=== PATIENT | female | born 1940 | race Native Hawaiian/Other Pacific Islander ===

== ENCOUNTER 2021-01-19 19:10 | Emergency (ER) | payer OTHER ==
[~2021-01-19] VITALS: Ht 167.6 cm; Wt 63.5 kg
[2021-01-19 19:11] VITALS: BP 196/86; TEMP 98.5
[2021-01-19 19:39] LABS: PLATELET COUNT 226 K/uL (152-353)
[2021-01-19 19:57] LABS: POTASSIUM 4.2 mmol/L (3.6-5.2)
[2021-01-20] MEDS ORDERED: MOBIC7.5 M1 PO (15:30)
[2021-01-20] MEDS ORDERED: RISP0.25 PO (15:30)
[2021-01-20] MEDS ORDERED: LORA2INJ21 INJ (15:31)
[2021-01-20] MEDS ORDERED: DIVA125C PO (15:31)
[2021-01-20] MEDS ORDERED: CARV12.5 PO (15:32)
[2021-01-20] MEDS ORDERED: LORA0.5T17 PO (15:32)
[2021-01-20] MEDS ORDERED: NAMENDA10 MG PO (15:32)
[2021-01-20] MEDS ORDERED: SERT50TA PO (15:33)
== END 2021-01-19 20:36 | disposition other institution (70) ==
LOC: ED 19:10
PROVIDERS: Family Medicine
DX: N39.0 Urinary tract infection, site not specified (principal); R46.89 Other symptoms and signs involving appearance and behavior; Z11.52 Encounter for screening for COVID-19; Z04.6 Encounter for general psychiatric examination, requested by authority
CPT/HCPCS: 36415; 80053; 81000; 85027; 87077; 87086; 87088; 87186; 87635; 93005; 99283; U0003